=== PATIENT | female | born 1990 | race African-American/Black ===

== ENCOUNTER 2018-04-14 06:19 | Emergency (ER) | payer SELFPAY ==
[~2018-04-14] VITALS: Ht 160 cm; Wt 63.0 kg
[2018-04-14 06:23] VITALS: Ht 160 cm; Wt 63.0 kg
[2018-04-14 08:01] VITALS: BP 131/74
== END 2018-04-14 08:01 | disposition home or self-care (01) ==
LOC: ED 06:19
DX: S61.412A Laceration without foreign body of left hand, initial encounter (principal); W26.0XXA Contact with knife, initial encounter; Y93.89 Activity, other specified; Y92.89 Other specified places as the place of occurrence of the external cause; Y99.8 Other external cause status
CPT/HCPCS: A4570; J2001; J3010; Q0092

== ENCOUNTER 2018-04-16 06:44 | Emergency (ER) | payer MEDICAID ==
[~2018-04-16] VITALS: Ht 160 cm; Wt 63.0 kg
[2018-04-16 06:50] VITALS: Ht 160 cm; Wt 63.0 kg
[2018-04-16 08:56] VITALS: BP 115/73
== END 2018-04-16 08:31 | disposition home or self-care (01) ==
LOC: ED 06:44
DX: S61.412D Laceration without foreign body of left hand, subsequent encounter (principal); W26.0XXD Contact with knife, subsequent encounter

== ENCOUNTER 2018-04-21 22:27 | Emergency (ER) | payer MEDICAID ==
[~2018-04-21] VITALS: Ht 160 cm; Wt 65.8 kg
[2018-04-21 22:52] VITALS: Ht 160 cm; Wt 65.8 kg
[2018-04-22 00:41] VITALS: BP 121/77
== END 2018-04-22 00:41 | disposition home or self-care (01) ==
LOC: ED 22:27
DX: G62.9 Polyneuropathy, unspecified (principal); Z48.01 Encounter for change or removal of surgical wound dressing